=== PATIENT | female | born 1980 ===

== ENCOUNTER 2017-04-21 11:26 | Emergency (ER) | payer MEDICAID ==
--- NOTE | 2017-04-21 12:22 | CPEKG ---
Heart Rate: 94 RR Interval: 638 P-R Interval: 124 QRSD Interval: 86 QT Interval: 320 QTC Interval: 401 P [place]: 70 QRS [place]: 57 T Wave [place]: 21 EKG Severity - NORMAL ECG - EKG Impression: SINUS RHYTHM Electronically Signed By: Xiomy Orellana 21-Apr-2017 15:15:18
[2017-04-21 12:53] LABS: % IMMATURE GRANULYOCYTES 1.1 % (0.0-1.1); ADD DIFF? NO; ADD MORPH? NO; ADD SCAN? NO; ATYPICAL LYMPHOCYTE FLAG 0 (0-99); FRAGMENT RBC FLAG 0 (0-99); HEMATOCRIT 33.5 % (38.0-47.0); HEMOGLOBIN 10.8 g/dL (12.6-16.3); LEFT SHIFT FLG 10 (0-99); LIPEMIA HEMOLYSIS FLAG 80 (0-99); MEAN CELL HEMOGLOBIN 27.7 pg (27.9-34.1); MEAN CELL HEMOGLOBIN CONCENTR. 32.2 g/dL (32.4-36.7); MEAN CELL VOLUME 85.9 fL (81.5-99.8); MEAN PLATELET VOLUME 9.3 fL (8.7-11.7); PLATELET CLUMPS FLAG 10 (0-99); PLATELET COUNT 356 10^3/uL (150-400); RED CELL DISTRIBUTION WIDTH 19.3 % (11.5-15.2)
[2017-04-21 13:05] LABS: ANION GAP 13 mEq/L (8-16); CALCIUM 8.9 mg/dL (8.5-10.4); CARBON DIOXIDE 23 mEq/l (22-31); CHLORIDE 104 mEq/L (97-110); CREATININE 0.7 mg/dL (0.6-1.0); GLOMERULAR FILTRATION RATE > 60; GLUCOSE 85 mg/dL (70-100); POTASSIUM 3.8 mEq/L (3.5-5.2); SODIUM 140 mEq/L (134-144)
[2017-04-21 13:05] LABS: COLOR PALE YELLOW; LEUKOCYTE ESTERASE,URINE NEGATIVE (NEGATIVE); NITRITE,URINE NEGATIVE (NEGATIVE)
[2017-04-21 13:11] LABS: BACTERIA TRACE /hpf (NONE SEEN); MUCUS TRACE /lpf (NONE-1+); RBC,URINE NONE SEEN /hpf (0-3)
[2017-04-21 13:16] LABS: TROPONIN I < 0.012 ng/mL (0-0.034)
--- NOTE | 2017-04-21 13:17 | EDPHY ---
H & P HPI/ROS: Chief complaint: Chest pain History of present illness: This is a 36-year-old female was asked come to the emergency department by her primary care doctor for evaluation of chest pain. Patient reports the onset of pain over the last 3-4 days. She describes a sharp , left-sided pain. She reports associated trouble breathing and left flank pain. Symptoms have been persistent. She denies precipitating factors. She denies alleviating factors. She denies other associated signs or symptoms currently. However, she states she has been on well the last few months most notably being sick with sore throats in lung infections which she has been on Augmentin and what sounds like Bactrim for. She has recently stopped her Bactrim. She denies other associated signs or symptoms at this time. Review of systems: A 10 point review of systems was obtained and other than described above was negative - Medical/Surgical History Other PMH: Rheumatoid arthritis, psoriatic arthritis - Physical Exam Exam: General Appearance: Alert, no distress. Eyes: Pupils equal and round no pallor or injection. ENT, Mouth: Mucous membranes moist. Respiratory: There are no retractions, lungs are clear to auscultation. Cardiovascular: Regular rate and rhythm. Lower extremities without evidence of DVT. Gastrointestinal: Abdomen is soft and non tender, no masses, bowel sounds normal. Neurological: Alert and oriented x4. Strength and sensation intact and symmetrical. Skin: Warm and dry, no rashes. Musculoskeletal: Neck is supple non tender. Extremities are symmetrical, full range of motion. Psychiatric: Patient is oriented X 3, there is no agitation. Constitutional: Initial Vital Signs Temperature (C) 36.7 C 04/21/17 14:34 Heart Rate 67 04/21/17 14:34 Respiratory Rate 16 04/21/17 14:34 Blood Pressure 103/64 04/21/17 14:34 O2 Sat (%) 95 04/21/17 14:34 O2 Delivery Mode Room Air Allergies/Adverse Reactions: No Known Allergies Allergy (Unverified 04/21/17 14:35) Medical Decision Making - Diagnostics Imaging Results: Imaging Impressions Chest/Thorax CTA 04/21/17 13:09 Impression: 1. No visible pulmonary embolus. 2. Minimal peribronchial thickening suggesting bronchitis. 3. Trace stranding inferior to the spleen, of uncertain clinical significance. 4. Likely benign hyperenhancing foci in the liver, likely a combination of PO and hemangiomas. 5. Additional findings as above. Findings discussed with Raciel Pascual PA-C, 04/21/2017 at 1431 hours. Imaging: Discussed imaging studies w/ manager call Radiologist ED Course/Re-evaluation: Patient is discussed at length with my secondary supervising physician Dr. Xiomy Orellana. Patient presents to the emergency department primarily for chest pain and shortness of breath that has developed over the last 3-4 days. On presentation she is nontoxic. Afebrile and vital signs are stable. Her evaluation including blood studies, EKG and CT scan of the chest for PE are negative for acute issues. She does have surrounding medical problems that she has been suffering from for the last few months. She is currently being evaluated by her primary care doctor for these problems. She is asked to continue to follow up with her primary care doctor for evaluation and care of our evaluation today and her other medical issues. Home care is discussed. Return precautions are given. Patient voiced understanding and agreement with plan. Differential Diagnosis: Included but not limited to musculoskeletal pain, GERD, anxiety, infections of multiple etiologies including pneumonia and bronchitis, pulmonary embolism, cardiac dysrhythmia, ACS - Data Points Laboratory Results: Laboratory Results 04/21/17 12:25 04/21/17 12:25 04/21/17 04/21/17 04/21/17 14:35 12:25 12:25 WBC RBC Hgb Hct MCV MCH MCHC RDW Plt Count MPV Neut % (Auto) Lymph % (Auto) [place] % (Auto) Eos % (Auto) Baso % (Auto) Nucleat RBC Rel Count Absolute Neuts (auto) Absolute Lymphs (auto) Absolute Monos (auto) Absolute Eos (auto) Absolute Basos (auto) Absolute Nucleated RBC Immature Gran % Immature Gran # D-Dimer Sodium 140 mEq/L mEq/L (134-144) Potassium 3.8 mEq/L mEq/L (3.5-5.2) Chloride 104 mEq/L mEq/L (97-110) Carbon Dioxide 23 mEq/l mEq/l (22-31) Anion Gap 13 mEq/L mEq/L (8-16) BUN 14 mg/dL mg/dL (7-23) Creatinine 0.7 mg/dL mg/dL (0.6-1.0) Estimated GFR > 60 Glucose 85 mg/dL mg/dL (70-100) Calcium 8.9 mg/dL mg/dL (8.5-10.4) Troponin I < 0.012 ng/mL ng/mL (0-0.034) Beta HCG, Qual NEGATIVE Urine Color Urine Appearance Urine pH Ur Specific [place] Urine Protein Urine Ketones Urine Blood Urine Nitrate Urine Bilirubin Urine Urobilinogen Ur Leukocyte Esterase Urine RBC Urine WBC Ur Epithelial Cells Urine Bacteria Hyaline Casts Urine Mucus Urine Glucose Monoscreen NEGATIVE (NEGATIVE) 04/21/17 04/21/17 04/21/17 12:25 12:25 12:20 WBC 18.71 10^3/uL H 10^3/uL (3.80-9.50) RBC 3.90 10^6/uL L 10^6/uL (4.18-5.33) Hgb 10.8 g/dL L g/dL (12.6-16.3) Hct 33.5 % L % (38.0-47.0) MCV 85.9 fL fL (81.5-99.8) MCH 27.7 pg L pg (27.9-34.1) MCHC 32.2 g/dL L g/dL (32.4-36.7) RDW 19.3 % H % (11.5-15.2) Plt Count 356 10^3/uL 10^3/uL (150-400) MPV 9.3 fL fL (8.7-11.7) Neut % (Auto) 82.5 % H % (39.3-74.2) Lymph % (Auto) 9.7 % L % (15.0-45.0) [place] % (Auto) 5.3 % % (4.5-13.0) Eos % (Auto) 1.1 % % (0.6-7.6) Baso % (Auto) 0.3 % % (0.3-1.7) Nucleat RBC Rel Count 0.0 % % (0.0-0.2) Absolute Neuts (auto) 15.44 10^3/uL H 10^3/uL (1.70-6.50) Absolute Lymphs (auto) 1.82 10^3/uL 10^3/uL (1.00-3.00) Absolute Monos (auto) 0.99 10^3/uL H 10^3/uL (0.30-0.80) Absolute Eos (auto) 0.20 10^3/uL 10^3/uL (0.03-0.40) Absolute Basos (auto) 0.06 10^3/uL 10^3/uL (0.02-0.10) Absolute Nucleated RBC 0.00 10^3/uL 10^3/uL (0-0.01) Immature Gran % 1.1 % % (0.0-1.1) Immature Gran # 0.20 10^3/uL H 10^3/uL (0.00-0.10) D-Dimer 2.50 ug/mLFEU H ug/mLFEU (0.00-0.50) Sodium Potassium Chloride Carbon Dioxide Anion Gap BUN Creatinine Estimated GFR Glucose Calcium Troponin I Beta HCG, Qual Urine Color PALE YELLOW Urine Appearance CLEAR Urine pH 5.0 (5.0-7.5) Ur Specific [place] 1.014 (1.002-1.030) Urine Protein NEGATIVE (NEGATIVE) Urine Ketones NEGATIVE (NEGATIVE) Urine Blood NEGATIVE (NEGATIVE) Urine Nitrate NEGATIVE (NEGATIVE) Urine Bilirubin NEGATIVE (NEGATIVE) Urine Urobilinogen NEGATIVE EU EU (0.2-1.0) Ur Leukocyte Esterase NEGATIVE (NEGATIVE) Urine RBC NONE SEEN /hpf /hpf (0-3) Urine WBC 1-3 /hpf /hpf (0-3) Ur Epithelial Cells TRACE /lpf /lpf (NONE-1+) Urine Bacteria TRACE /hpf H /hpf (NONE SEEN) Hyaline Casts 1-5 /lpf /lpf (0-1) Urine Mucus TRACE /lpf /lpf (NONE-1+) Urine Glucose NEGATIVE (NEGATIVE) Monoscreen Departure - Departure Disposition: Home, Routine, Self-Care Clinical Impression: Chest pain Qualifiers: Chest pain type: unspecified Qualified Code(s): R07.9 - Chest pain, unspecified Condition: Good Instructions: Chest Pain (ED) Additional Instructions: Follow-up with your primary care doctor for continued evaluation and care If symptoms worsen or new symptoms develop return to the emergency room for recheck Referrals: Matthew Aguilar MD [Primary Care Provider] - As per Instructions
[2017-04-21] MEDS ORDERED: IOPAMIDOL (ISOVUE 370) 100 ML BTL IV ONE (13:29)
[2017-04-21 15:17] VITALS: BP 122/79; PULSE 87; RESP 20; TEMP 99; O2SAT 96
== END 2017-04-21 15:14 | disposition home or self-care (01) ==
DX: R07.9 Chest pain, unspecified (principal); R10.9 Unspecified abdominal pain
CPT/HCPCS: Q9967